=== PATIENT | female | born 1970 | race Caucasian/White ===

== ENCOUNTER 2019-01-19 15:14 | Outpatient (CLI) | payer OTHER ==
--- NOTE | 2019-01-19 16:21 | MRI ---
MRI OF LUMBAR SPINE WITHOUT CONTRAST: 01/19/19 Multiplanar and multisequential imaging of the lumbar spine obtained. INDICATIONS: Lumbar radiculopathy. FINDINGS: Lumbar vertebrae maintain normal height and alignment. Vertebral body signal is normal. Degenerative disc changes are seen at L4-5 and L5-S1. Mild loss of disc space at L5-S1. No significant disc bulge or disc protrusion seen at L1-2 or L2-3. At L3-4, minimal disc bulge with mild facet hypertrophy. No central canal or foraminal stenosis. At L4-5, broad based bulge with asymmetric protrusions centrally and paracentrally to the left. This flattens the anterior thecal sac anteriorly and laterally to the left and displaces the traversing le ft L5 nerve root. It also compresses the exiting left L4 nerve root. There is facet and ligamentous h ypertrophy. Mild to moderate central canal stenosis. At L5-S1, focal disc protrusion centrally with slight superior migration. Small focal disc flattens t he anterior thecal sac. No significant central canal stenosis. IMPRESSION: There are disc protrusions at L4-5 and at L5-S1 as described above. POS: WILL
== END 2019-01-19 15:15 | disposition home or self-care (01) ==
LOC: MRI 15:14
PROVIDERS: ATTEND Neurological Surgery
DX: M51.16 Intervertebral disc disorders with radiculopathy, lumbar region (principal); M51.27 Other intervertebral disc displacement, lumbosacral region
CPT/HCPCS: 72148

== ENCOUNTER 2019-01-19 16:31 | Outpatient (CLI) | payer OTHER ==
[2019-01-19 17:42] LABS: Hemoglobin 12.4 g/dL (12.0-16.0); Mean Corpuscular HGB CONC 33.5 g/dL (32.0-36.0); Mean Corpuscular Hemoglobin 32.4 pg (27.0-31.0); Mean Corpuscular Volume 96.7 fL (78.0-98.0); Mean Platelet Volume 8.3 fL (7.4-10.4); Platelet Count 290 thou/uL (130-400); RBC Distribution Width 11.8 % (11.5-14.5); Red Blood Cell (RBC) Count 3.83 mill/uL (4.20-5.40); White Blood Cell (WBC) Count 9.4 thou/uL (4.8-10.8)
[2019-01-19 18:04] LABS: Anion Gap 11 mmol/L (10-20); BUN (Urea Nitrogen) 13 mg/dL (7.0-18.7); Calc. Creatinine Clearance 0 mL/min (70-130); Calcium 9.5 mg/dL (7.8-10.44); Carbon Dioxide 26 mmol/L (22-29); Chloride 104 mmol/L (98-107); Estimated GFR-MDRD Greater than 90; Glucose 106 mg/dL (70-105); Potassium 3.6 mmol/L (3.5-5.1); Sodium 137 mmol/L (136-145)
== END 2019-01-19 16:32 | disposition home or self-care (01) ==
LOC: LABBT 16:31
PROVIDERS: ATTEND Neurological Surgery
DX: Z01.812 Encounter for preprocedural laboratory examination (principal); M54.16 Radiculopathy, lumbar region
CPT/HCPCS: 80048; 85027

== ENCOUNTER 2019-01-24 06:05 | Day surgery (SDC) | payer OTHER ==
[2019-01-19 16:44] VITALS: BMI 25.0
[2019-01-24] MEDS ORDERED: Fentanyl 100 MCG/2 ML VIAL ONE ×3 (06:48→09:10)
[2019-01-24] MEDS ORDERED: Midazolam HCl 2 mg/2 ml Vial ONE (07:06)
[2019-01-24] MEDS ORDERED: Scopolamine 1.5 mg/72 hour Patch ONE (07:07)
[2019-01-24] MEDS ORDERED: Morphine 4 MG/ML VIAL ONE (09:30)
[2019-01-24] MEDS ORDERED: Morphine 2 MG/ML SYRINGE ONE ×2 (09:39→09:49)
[2019-01-24] MEDS ORDERED: Glycopyrrolate 0.2 MG/ML 5 ML SYRINGE ONE (10:27)
[2019-01-24] MEDS ORDERED: PHENYLEPHRINE-NS 100 MCG/ML 10 ML SYRINGE ONE (10:27)
[2019-01-24] MEDS ORDERED: Ondansetron PF 4 MG/2 ML Vial ONE (10:27)
[2019-01-24] MEDS ORDERED: Dexamethasone 20 MG/5 ML VIAL ONE (10:27)
[2019-01-24] MEDS ORDERED: Rocuronium Bromide 10 MG/ML (10ML VIAL) ONE (10:27)
[2019-01-24] MEDS ORDERED: Lidocaine 1% PF 5 ML VIAL ONE (10:27)
[2019-01-24] MEDS ORDERED: diphenhydrAMINE 50 MG/ML VIAL ONE (10:27)
[2019-01-24] MEDS ORDERED: Ketorolac Tromethamine 30 MG/ML VIAL ONE (10:27)
[2019-01-24] MEDS ORDERED: PROPOFOL 200 MG/20 ML VIAL ONE (10:27)
--- NOTE | 2019-01-24 12:26 | OP ---
DATE OF PROCEDURE: 01/24/2019 MED SPEC: [id number]. PROCEDURE PERFORMED: L4-L5 microdiskectomy, operative microscope. DESCRIPTION OF PROCEDURE: The patient was brought to the operating room and intubated. She was rolled in a prone position on gel-filled chest rolls. An incision was made exposing L4-L5 on the left and the level was confirmed by x-ray. We performed a left L4-L5 hemilaminectomy. Removed the ligament, identified the left L5 nerve root and beneath this was a bulging disk herniation. Using operative microscope and microdissection techniques, this was removed in multiple fragments and complete decompression of the left L5 was achieved. The wound was extensively irrigated. Maximum hemostasis was secured. Vancomycin powder was applied, and the wound was closed in anatomic layers. Job ID: [id number]
== END 2019-01-24 11:20 | disposition home or self-care (01) ==
LOC: SDC 06:05
PROVIDERS: ATTEND Neurological Surgery
PROC: 0ST20ZZ Resection of Lumbar Vertebral Disc, Open Approach (ICD-10-PCS; principal; 2019-01-24)
DX: M51.16 Intervertebral disc disorders with radiculopathy, lumbar region (principal); F41.9 Anxiety disorder, unspecified
CPT/HCPCS: 76000; J0131; J0690; J1100; J1200; J1885; J2001; J2250; J2270; J2405; J2704; J3010; J3370

== ENCOUNTER 2019-10-17 12:13 | Outpatient (CLI) | payer OTHER ==
[2019-10-17] MEDS ORDERED: Magnevist 469MG/ML 20 ML VIAL ONE (14:57)
--- NOTE | 2019-10-17 16:04 | MRI ---
EXAM: LUMBAR SPINE MRI WITH AND WITHOUT CONTRAST: 08/16/20 COMPARISON: 01/19/19. TECHNIQUE: Lumbar spine MRI is performed without intravenous gadolinium administration. Multisequential, multipl jimi imaging is performed. FINDINGS: Appropriate T1 marrow signal intensity of the lumbar vertebrae. Lumbar spine vertebral body height is maintained. There is no fracture. There is no significant STIR hyperintensity to suggest vertebral b fer edema or ligamentous injury. Appropriate signal intensity in the visualized paraspinal muscles. Complex slightly septated cyst is noted in the left kidney, unchanged in size measuring 2.3 x 2.0 cm. There is no associated enhancement, beyond thin septal enhancement. Postcontrast images do not demonstrate any abnormal enhancement of the vertebral bodies. There is no abnormal enhancement within the thecal sac, including the cauda equina and conus medullaris. T12-L1: Adequate disc hydration. No significant central canal stenosis or neural foraminal narrowing. L1-L2: Adequate disc hydration. No significant central canal stenosis or neural foraminal narrowing. L2-L3: Adequate disc hydration. Minimal left and right paracentral disc bulge, ligamentum flavum thic kening and facet hypertrophy result in minimal central canal stenosis. Bilaterally, the neural forami na are patent. L3-L4: Mild loss of disc space height. Mild ligamentum flavum thickening and facet hypertrophy. No si gnificant central canal stenosis or significant neural foraminal narrowing. L4-L5: Desiccation with mild loss of disc space height. There is a broad based disc bulge with a left and right subarticular disc protrusion. There is contact upon the traversing right L5 nerve root wit hout significant mass effect or obscuration. There is mass effect and partial obscuration of the bryan ersing left L5 nerve root due to disc material. The degree of mass effect has slightly decreased. The re is a linear T2 and STIR hyperintense focus at the left subarticular zone with associated linear en hancement involving the annulus of the disc. A small annular fissure is favored. This annular fissure was not appreciated on the previous examination. Right neural foramen and left neural foramen are pa tent. There is a left hemilaminotomy defect. Enhancing scar tissue identified. Small amount of scar t issue is also noted in the left subarticular zone adding to the overall degree of mass effect upon th e traversing left L5 nerve root. L5-S1: Desiccation with mild loss of disc space height. There is new disc herniation into the left mcadams barticular zone with partial obscuration of the traversing left S1 nerve root. Right subarticular zon e and thecal sac do not have any significant mass effect or stenosis. Bilaterally, the neural foramin a are patent. IMPRESSION: 1. Interval disc herniation into the left subarticular zone at L5-S1 with partial obscuration of the traversing left S1 nerve root. 2. Left hemilaminotomy defect at L4-L5. There is redemonstration of bilateral subarticular disc herniation. The overall degree of mass effect upon the traversing left L5 nerve root has decreased. H owever, there is an interval small annular fissure in the left subarticular component of the disc. Th ere is also evidence of enhancing scar tissue in the left subarticular zone encompassing the traversi ng left L5 nerve root. POS: WILL
== END 2019-10-17 12:14 | disposition home or self-care (01) ==
LOC: BICMRI 12:13
PROVIDERS: ATTEND Physician Assistant
DX: M51.17 Intervertebral disc disorders with radiculopathy, lumbosacral region (principal); M51.16 Intervertebral disc disorders with radiculopathy, lumbar region; Z98.890 Other specified postprocedural states
CPT/HCPCS: 72158; A9579

== ENCOUNTER 2019-11-13 19:13 | Emergency (ER) | payer OTHER ==
[2019-11-13] MEDS ORDERED: Morphine 4 MG/ML VIAL ONE (21:34)
[2019-11-13] MEDS ORDERED: Morphine 2 MG/ML SYRINGE ONE (21:35)
[2019-11-13] MEDS ORDERED: predniSONE 20 MG TAB ONE ×2 (21:36→21:40)
[2019-11-13] MEDS ORDERED: Ketorolac Tromethamine 30 MG/ML VIAL ONE ×2 (21:36→21:40)
[2019-11-13] MEDS ORDERED: Morphine 10 MG/ML VIAL ONE (21:40)
== END 2019-11-13 22:50 | disposition home or self-care (01) ==
LOC: ERS 19:13
DX: M54.5 Low back pain (principal); K21.9 Gastro-esophageal reflux disease without esophagitis; F41.9 Anxiety disorder, unspecified; Z79.899 Other long term (current) drug therapy; Z79.1 Long term (current) use of non-steroidal anti-inflammatories (NSAID)
CPT/HCPCS: 96372; 99283; J1885; J2270; J7512

== ENCOUNTER 2019-11-27 06:51 | Day surgery (SDC) | payer OTHER ==
[2019-11-24 10:47] VITALS: BMI 25.7
[2019-11-27] MEDS ORDERED: Midazolam HCl 2 mg/2 ml Vial ONE (07:14)
[2019-11-27] MEDS ORDERED: Fentanyl 100 MCG/2 ML VIAL ONE ×3 (07:14→09:43)
[2019-11-27] MEDS ORDERED: Thrombin 5000 UNITS/5 ML VIAL ONE (07:28)
[2019-11-27] MEDS ORDERED: Scopolamine 1.5 mg/72 hour Patch ONE (07:52)
[2019-11-27 07:57] LABS: Hemoglobin 12.6 g/dL (12.0-16.0); Mean Corpuscular HGB CONC 33.3 g/dL (32.0-36.0); Mean Corpuscular Hemoglobin 32.1 pg (27.0-31.0); Mean Corpuscular Volume 96.4 fL (78.0-98.0); Mean Platelet Volume 8.2 fL (7.4-10.4); Platelet Count 268 thou/uL (130-400); RBC Distribution Width 11.8 % (11.5-14.5); Red Blood Cell (RBC) Count 3.91 mill/uL (4.20-5.40); White Blood Cell (WBC) Count 7.8 thou/uL (4.8-10.8)
[2019-11-27 08:13] LABS: Anion Gap 11 mmol/L (10-20); BUN (Urea Nitrogen) 17 mg/dL (7.0-18.7); Calc. Creatinine Clearance 112 mL/min (70-130); Calcium 8.8 mg/dL (7.8-10.44); Carbon Dioxide 24 mmol/L (22-29); Chloride 106 mmol/L (98-107); Estimated GFR-MDRD Greater than 90; Glucose 91 mg/dL (70-105); Potassium 4.1 mmol/L (3.5-5.1); Sodium 137 mmol/L (136-145)
--- NOTE | 2019-11-27 09:08 | OP ---
DATE OF PROCEDURE: 11/27/2019 MANAGER FIELD: Suzie Asif PA-C PROCEDURE PERFORMED: Left L5-S1 microdiscectomy. DESCRIPTION OF PROCEDURE: The patient was brought to the operating room and intubated. She was rolled in a prone position on gel-filled chest rolls. An incision was made exposing left L5-S1 and the level was confirmed by x-ray. We performed left L5-S1 hemilaminectomy, removed via ligament and beneath the left S1 nerve root was an extruded disk herniation removed in 2 large fragments. After complete decompression was achieved, the wound was then extensively irrigated and MAC hemostasis was secured. Vancomycin powder was applied and the wound was closed in anatomic layers. Job ID: [id number]
[2019-11-27] MEDS ORDERED: Glycopyrrolate 0.2 MG/ML 5 ML SYRINGE ONE (09:44)
[2019-11-27] MEDS ORDERED: Rocuronium Bromide 10 MG/ML (10ML VIAL) ONE (09:44)
[2019-11-27] MEDS ORDERED: Ondansetron PF 4 MG/2 ML Vial ONE (09:44)
[2019-11-27] MEDS ORDERED: Dexamethasone 20 MG/5 ML VIAL ONE (09:44)
[2019-11-27] MEDS ORDERED: PROPOFOL 200 MG/20 ML VIAL ONE (09:44)
[2019-11-27] MEDS ORDERED: HYDROcodone/Acetaminophen 5/325 mg Tablet ONE (10:53)
--- NOTE | 2019-11-28 11:33 | EKG ---
Test Reason : PREOP Blood Pressure : / mmHG Vent. Rate : 071 BPM Atrial Rate : 071 BPM P-R Int : 182 ms QRS Dur : 076 ms QT Int : 400 ms P-R-T Axes : 068 047 065 degrees QTc Int : 434 ms Normal sinus rhythm Normal ECG No previous ECGs available Confirmed by DR. Cathryn WATTERS MD ([id number]) on 11/28/2019 11:33:27 AM Referred By: CORRIE Confirmed By:DR. Cathryn WATTERS MD
== END 2019-11-27 11:37 | disposition home or self-care (01) ==
LOC: SDC 06:51
PROVIDERS: ATTEND Neurological Surgery
PROC: 0ST20ZZ Resection of Lumbar Vertebral Disc, Open Approach (ICD-10-PCS; principal; 2019-11-27)
DX: M54.16 Radiculopathy, lumbar region (principal); Z79.899 Other long term (current) drug therapy
CPT/HCPCS: 76000; 80048; 85027; 93005; 93010; J0690; J1100; J2250; J2405; J2704; J3010; J3370